=== PATIENT | female | born 1980 | race African-American/Black ===

== ENCOUNTER 2017-04-09 18:45 | Emergency (ER) | payer OTHER ==
[~2017-04-09] VITALS: Ht 167.6 cm; Wt 99.8 kg
[~2017-04-09 18:45] MED LIST: EXCEDRIN CAPLE1 EACH PO; FLEXERIL PO; IBUPROFEN 800800 MG PO; NORCO 5-325 TA1 EACH PO; PENICILLIN V P500 MG PO
[2017-04-09] MEDS ORDERED: HYDROCODONE-AP1 EAC6 PO (20:07)
[2017-04-09] MEDS ORDERED: NAPROSYN500 MG PO (20:07)
[2017-04-09 20:17] VITALS: BP 138/72
== END 2017-04-09 20:19 | disposition home or self-care (01) ==
LOC: ER 18:45
DX: N75.1 Abscess of Bartholin's gland (principal); G43.909 Migraine, unspecified, not intractable, without status migrainosus; F17.210 Nicotine dependence, cigarettes, uncomplicated

== ENCOUNTER 2018-09-09 00:09 | Emergency (ER) | payer OTHER ==
[~2018-09-09] VITALS: Ht 170.2 cm; Wt 104.3 kg
[~2018-09-09 00:09] MED LIST changes: +HYDROCODONE-AP1 EAC6 PO; +NAPROSYN500 MG PO
[2018-09-09 00:30] LABS: ABSOLUTE NEUTROPHILS 11.8 thou/uL (1.4-8.2); BASOPHILS 0.3 % (0.0-2.0); EOSINOPHILS 0.1 % (0.0-3.0); HEMATOCRIT 41.6 % (37.0-47.0); HEMOGLOBIN 13.9 gm/dL (12.0-15.0); LYMPHOCYTES 7.8 % (24.0-44.0); MCHC 33.4 g/dL (28.0-37.0); MCV 89.7 fL (80.0-100.0); MONOCYTES 2.6 % (1.0-8.0); PLATELET COUNT 216 thou/uL (150-400); POLYS 89.2 % (36.0-66.0); RBC 4.63 mil/uL (4.20-5.00); RDW 15.9 % (10.5-14.5); WBC 13.2 thou/uL (4.0-11.0)
[2018-09-09 00:40] LABS: CALCIUM 8.9 mg/dL (8.5-10.1); CREATININE 0.7 mg/dL (0.6-1.0); POTASSIUM 3.5 mmol/L (3.5-5.1)
[2018-09-09 00:45] LABS: ALBUMIN 3.5 g/dL (3.4-5.0); TOTAL BILIRUBIN 0.5 mg/dL (<0.1-1.0); TOTAL PROTEIN 7.3 g/dL (6.4-8.2)
[2018-09-09 01:09] LABS: URINE BILIRUBIN 1+ (Negative); URINE BLOOD NEGATIVE (Negative); URINE CLARITY CLEAR; URINE COLOR YELLOW; URINE GLUCOSE-RANDOM* NEGATIVE (Negative); URINE KETONES TRACE (Negative); URINE LEUKOCYTES NEGATIVE (Negative); URINE NITRITE NEGATIVE (Negative); URINE PROTEIN (DIPSTICK) 2+ (Negative); URINE SPECIFIC GRAVITY >= 1.030 (1.005-1.035)
[2018-09-09 01:18] LABS: ICTOTEST (BILI CONFIRMATORY) Positive (Negative)
[2018-09-09 01:26] LABS: BACTERIA 1-9 Few /HPF (None Seen); CRYSTALS None Seen /LPF (None Seen); HYALINE CASTS 0-3 Few /LPF (None Seen); MUCUS 4-6 Moderate strn/LPF (None Seen); SQUAMOUS >10 Many /LPF (0-3); URINE RBC 0-2 Rare /HPF (0-2); URINE WBC 0-5 Rare /HPF (0-5)
[2018-09-09 03:20] LABS: LARGE PLATELETS OCCASIONAL
[2018-09-09] MEDS ORDERED: ZOFRAN ODT4 MG DISSOLVE (04:15)
[2018-09-09] MEDS ORDERED: PRILOSEC 20 MG20 MG PO (04:15)
[2018-09-09] MEDS ORDERED: TRAMADOL 50 MG50 MG PO (04:15)
[2018-09-09 04:40] VITALS: BP 155/84
== END 2018-09-09 04:41 | disposition home or self-care (01) ==
LOC: ER 00:09
PROVIDERS: Emergency Medicine
DX: K81.9 Cholecystitis, unspecified (principal); I10 Essential (primary) hypertension; G43.909 Migraine, unspecified, not intractable, without status migrainosus; F17.210 Nicotine dependence, cigarettes, uncomplicated

== ENCOUNTER 2020-01-29 03:35 | Emergency (ER) | payer OTHER ==
[~2020-01-29] VITALS: Ht 167.6 cm; Wt 99.8 kg
[~2020-01-29 03:35] MED LIST changes: +PRILOSEC 20 MG20 MG PO; +TRAMADOL 50 MG50 MG PO; +ZOFRAN ODT4 MG DISSOLVE
[2020-01-29 05:35] VITALS: BP 165/102
== END 2020-01-29 05:38 | disposition home or self-care (01) ==
LOC: ER 03:35
DX: R04.0 Epistaxis (principal); I10 Essential (primary) hypertension; G43.909 Migraine, unspecified, not intractable, without status migrainosus; F17.210 Nicotine dependence, cigarettes, uncomplicated; Z79.899 Other long term (current) drug therapy